=== PATIENT | male | born 1970 | race African-American/Black ===

== ENCOUNTER 2024-10-10 12:48 | Emergency (ER) | payer MEDICAID ==
[~2024-10-10] VITALS: Ht 170.2 cm; Wt 99.7 kg
[2024-10-10 13:44] VITALS: O2SAT 96
[2024-10-10] MEDS ORDERED: KETOROLAC 15MG/ML VIAL IM ONE (14:30)
[2024-10-10] MEDS ORDERED: ACETAMINOPHEN 650MG/20.3ML UDC PO ONE (14:30)
[2024-10-10] MEDS ORDERED: LIDOCAINE 5% PATCH TOP ONE (14:30)
[2024-10-10 14:39] LABS: BASOPHILS % 0.5 % (0.0-2.0); EOSINOPHILS % 2.4 % (0.0-5.0); HEMOGLOBIN. 13.6 g/dL (14.0-18.0); LYMPHOCYTES % 39.1 % (20.0-50.0); MEAN CORPUSCULAR HEMOGLOBIN 32.6 pg (28.0-32.0); MEAN CORPUSCULAR HGB CONC 33.1 g/dL (31.0-37.0); MEAN CORPUSCULAR VOLUME 98.4 fL (80.0-94.0); MEAN PLATELET VOLUME 8.1 fl (7.4-10.4); PLATELET 254 x1000/uL (130-400); RED BLOOD CELL COUNT 4.16 mill/uL (4.7-6.1); RED CELL DISTRIBUTION WIDTH 12.6 % (11.6-14.6)
[2024-10-10 14:41] LABS: CHLORIDE 106 mEq/L (98-107); POTASSIUM 4.2 mEq/L (3.5-5.1); SODIUM 141 mEq/L (136-145)
[2024-10-10 14:42] LABS: CARBON DIOXIDE 30 mEq/L (21-32)
[2024-10-10 14:43] LABS: CALCIUM 9.2 mg/dL (8.7-10.4)
[2024-10-10 14:47] LABS: CREATININE 1.1 mg/dL (0.6-1.3); GLUCOSE 90 mg/dL (70-105); UREA NITROGEN BLOOD 14 mg/dL (9-23)
[2024-10-10 14:49] LABS: ALANINE AMINOTRANSFERASE 24 IU/L (10-49); ALBUMIN 4.3 g/dL (3.2-4.8); ASPARTATE AMINOTRANSFERASE 25 IU/L (<34)
[2024-10-10 14:50] LABS: BILIRUBIN TOTAL 0.5 mg/dL (0.1-1.0); PROTEIN TOTAL 7.9 g/dL (6.0-8.3)
[2024-10-10 15:24] LABS: CLARITY URINE CLEAR (CLEAR); COLOR URINE YELLOW (YELLOW); GLUCOSE URINE NEGATIVE (NEGATIVE); KETONES URINE NEGATIVE (NEGATIVE); LEUKOCYTE ESTERASE URINE NEGATIVE (NEGATIVE); NITRITE URINE NEGATIVE (NEGATIVE); OCCULT BLOOD URINE NEGATIVE (NEGATIVE); PH URINE 5.5 (4.5-8.0); PROTEIN URINE NEGATIVE (NEGATIVE); SPECIFIC GRAVITY URINE 1.023 (1.005-1.030); UROBILINOGEN URINE 0.2 E.U./dL (0.2-1.0)
[2024-10-10] MEDS: LIDOCAINE 5% PATCH TOP NR (16:20)
[2024-10-10] MEDS: ACETAMINOPHEN 325MG TABLET PO NR (16:20)
[2024-10-10] MEDS: KETOROLAC 15MG/ML VIAL IM NR (16:20)
[2024-10-10 16:24] VITALS: BP 133/68; PULSE 64; RESP 16; TEMP 36.66960; O2SAT 96
== END 2024-10-10 16:26 | disposition home or self-care (01) ==
LOC: ER 13:28
DX: M54.50 Low back pain, unspecified (principal); I10 Essential (primary) hypertension
CPT/HCPCS: 99283; 80053; 81003; 85025; 36415; 96372; J1885

== ENCOUNTER 2024-10-27 18:54 | Emergency (ER) | payer MEDICAID ==
[~2024-10-27] VITALS: Ht 172.7 cm; Wt 99.0 kg
[2024-10-27 18:56] VITALS: O2SAT 100
[2024-10-27 19:04] VITALS: BP 139/83; PULSE 82; RESP 18; TEMP 98.3; O2SAT 98
[2024-10-28] MEDS ORDERED: NAPR-1176 MT (05:17)
[2024-10-28] MEDS ORDERED: LIDO700A15 TP (05:17)
[2024-10-28] MEDS ORDERED: CEPH500C2 MT (05:18)
[2024-10-28] MEDS ORDERED: SULF1TAB48 MT (05:18)
== END 2024-10-27 20:56 | disposition left against medical advice (07) ==
LOC: ER 18:54
DX: M54.50 Low back pain, unspecified (principal); J45.909 Unspecified asthma, uncomplicated; I10 Essential (primary) hypertension; Z53.21 Procedure and treatment not carried out due to patient leaving prior to being seen by health care provider

== ENCOUNTER 2024-10-28 03:53 | Emergency (ER) | payer MEDICAID ==
[~2024-10-28] VITALS: Ht 175.3 cm; Wt 111.2 kg
[2024-10-28 04:05] VITALS: O2SAT 97
[2024-10-28] MEDS: KETOROLAC 15MG/ML VIAL IM ONE (04:30)
[2024-10-28] MEDS: LIDOCAINE 5% PATCH TOP SCH (04:30)
[2024-10-28] MEDS ORDERED: NAPR-1176 MT (05:17)
[2024-10-28] MEDS ORDERED: LIDO700A15 TP (05:17)
[2024-10-28] MEDS ORDERED: CEPH500C2 MT (05:18)
[2024-10-28] MEDS ORDERED: SULF1TAB48 MT (05:18)
[2024-10-28 05:28] VITALS: BP 140/79; PULSE 88; RESP 16; TEMP 37.16964; O2SAT 98
== END 2024-10-28 05:27 | disposition home or self-care (01) ==
LOC: ER 03:53
DX: L02.212 Cutaneous abscess of back [any part, except buttock and flank] (principal); J45.909 Unspecified asthma, uncomplicated
CPT/HCPCS: 10060; 96372; 99283; J1885; Z7610

== ENCOUNTER 2024-11-03 18:40 | Emergency (ER) | payer MEDICAID, OTHER ==
[~2024-11-03] VITALS: Ht 172.7 cm; Wt 103.0 kg
[~2024-11-03 18:40] MED LIST: CEPH500C2 MT; LIDO700A15 TP; NAPR-1176 MT; SULF1TAB48 MT
[2024-11-03 18:45] VITALS: O2SAT 98
[2024-11-03 18:54] VITALS: BP 142/84; PULSE 83; RESP 18; TEMP 98.5; O2SAT 97
== END 2024-11-04 00:47 | disposition home or self-care (01) ==
LOC: ER 18:40
DX: J86.9 Pyothorax without fistula (principal); J45.909 Unspecified asthma, uncomplicated; Z79.1 Long term (current) use of non-steroidal anti-inflammatories (NSAID)
CPT/HCPCS: 10060; 99284; Z7610; 99283